=== PATIENT | male | born 1960 | race Caucasian/White ===

== ENCOUNTER 2020-10-12 07:12 | Outpatient (CLI) | payer MEDICARE, SELFPAY ==
[2020-10-12 07:33] LABS: Basophils Absolute Auto 0.03 K/mm3 (0.00-0.10); Basophils Percent Auto 0.7 % (0.0-1.0); Eosinophils Absolute Auto 0.11 K/mm3 (0.02-0.50); Eosinophils Percent Auto 2.6 % (1.0-6.0); Hematocrit 44.9 % (40.0-54.0); Hemoglobin 15.7 g/dL (14.0-18.0); Immature Granulocyte Absolute 0.01 K/mm3 (0.00-0.00); Immature Granulocyte Percent A 0.2 % (0.0-0.0); Lymphocytes Absolute Auto 1.37 K/mm3 (1.10-4.50); Lymphocytes Percent Auto 32.3 % (18.0-42.0); Mean Corpuscular Hemoglobin 30.8 pg (27.0-31.0); Mean Corpuscular Volume 88.2 fL (78.0-102.0); Mean Platelet Volume 12.2 fl (8.7-11.0); Monocytes Absolute Auto 0.41 K/mm3 (0.10-0.90); Monocytes Percent Auto 9.7 % (2.0-11.0); Neutrophils Absolute Auto 2.3 K/mm3 (1.7-7.2); Neutrophils Percent Auto 54.5 % (50.0-70.0); Platelet Count Result 125 K/mm3 (150-420); Red Blood Count 5.09 M/mm3 (4.70-6.10); White Blood Count 4.2 K/mm3 (4.8-10.8)
[2020-10-12 07:44] LABS: Hemoglobin A1C 5.1 % (<5.7)
[2020-10-12 09:00] LABS: Alanine Aminotransferase 33 U/L (16-63); Albumin Level 4.2 g/dL (3.4-5.0); Alkaline Phosphatase 88 U/L (46-116); Anion Gap 6 mmol/L (8-16); Aspartate Amino Transferase 19 U/L (15-37); Bilirubin,Total 0.6 mg/dL (0.00-1.00); Blood Urea Nitrogen 23 mg/dL (7-18); Calcium 8.8 mg/dL (8.5-10.1); Carbon Dioxide 31 mmol/L (21-32); Chloride 104 mmol/L (98-108); Cholesterol 166 mg/dL (0-200); Estimated Glomerular Filt Rate > 60; Free T4 Free Thyroxine 0.88 ng/dL (0.76-1.46); Glucose 95 mg/dL (70-99); HDL Direct 35 mg/dL (40-60); LDL Cholesterol Calculated 102 mg/dL (<130); Osmolality Calculated 295 mOsm/kg (285-295); Sodium 141 mmol/L (136-145); Thyroid Stimulating Hormone 1.81 uIU/mL (0.36-3.74); Total Protein 6.7 g/dL (6.4-8.2); Triglycerides 144 mg/dL (0-150); Vitamin B12 487 pg/mL (193-986)
== END 2020-10-12 07:13 | disposition home or self-care (01) ==
LOC: CHSLAB 07:22
PROVIDERS: PCP Internal Medicine; Visit Provider Internal Medicine
DX: R73.01 Impaired fasting glucose (principal); E78.2 Mixed hyperlipidemia; G62.9 Polyneuropathy, unspecified
CPT/HCPCS: 36415; 80053; 80061; 82607; 83036; 84439; 84443; 84481; 85025; 86038

== ENCOUNTER 2021-04-26 07:04 | Outpatient (CLI) | payer MEDICARE, SELFPAY ==
[2021-04-26 07:18] LABS: Hematocrit 44.3 % (40.0-54.0); Hemoglobin 15.7 g/dL (14.0-18.0); Immature Platelet Fraction Pct 10.3 % (1.0-7.0); Mean Corpuscular HGB Conc 35.4 g/dL (32.0-36.0); Mean Corpuscular Hemoglobin 31.2 pg (27.0-31.0); Mean Corpuscular Volume 87.9 fL (78.0-102.0); Mean Platelet Volume 12.2 fl (8.7-11.0); Platelet Count Result 127 K/mm3 (150-420); Red Blood Count 5.04 M/mm3 (4.70-6.10); Red Cell Distribution Width 12.4 % (11.6-14.4); White Blood Count 3.6 K/mm3 (4.8-10.8)
[2021-04-26 08:15] LABS: Anion Gap 7 mmol/L (8-16); Blood Urea Nitrogen 22 mg/dL (7-18); Calcium 9.1 mg/dL (8.5-10.1); Carbon Dioxide 30 mmol/L (21-32); Chloride 107 mmol/L (98-108); Estimated Glomerular Filt Rate > 60; Glucose 95 mg/dL (70-99); Osmolality Calculated 301 mOsm/kg (285-295); Potassium 4.2 mmol/L (3.5-5.1); Sodium 144 mmol/L (136-145)
[2021-04-26 08:58] LABS: Total Cells Counted 100
[2021-04-26 09:11] LABS: Band Neutrophils Percent 0 % (0-6); Eosinophils Absolute Manual 0.18 K/mm3 (0.02-0.5); Eosinophils Percent Manual 5 % (1-6); Lymphocytes Absolute Manual 1.36 K/mm3 (1.1-4.5); Lymphocytes Percent Manual 38 % (18-44); Monocytes Absolute Manual 0.28 K/mm3 (0.1-0.90); Monocytes Percent Manual 8 % (3-9); Neutrophils Absolute Manual 1.76 K/mm3 (1.3-6.7); Neutrophils Percent Manual 49 % (46-73)
== END 2021-04-26 07:05 | disposition home or self-care (01) ==
LOC: CHSLAB 07:06
PROVIDERS: PCP Internal Medicine; Visit Provider Internal Medicine
DX: D69.6 Thrombocytopenia, unspecified (principal); I10 Essential (primary) hypertension
CPT/HCPCS: 36415; 80048; 85025; 85055; 85060

== ENCOUNTER 2021-05-31 07:32 | Outpatient (CLI) | payer MEDICARE, SELFPAY ==
--- NOTE | ~2021-05-31 | XR_ITS ---
EXAMINATION: XR_ENEMABAC_CR EXAM DATE: 05/31/2021 09:41 INDICATION: Incomplete colonoscopy. TECHNIQUE: Double contrast Barium and air enema performed through rectal tube inserted by Dr. Whaley. Total fluoroscopic time of 0.8 minutes. The DAP for this procedure was 106 mGym2. A total of 62 edwina ges sent to PACS from the exam. There is no prior study for comparison. FINDINGS: Contrast reached the cecum. There is tortuosity to the splenic flexure of the colon. There are no strictures or fixed filling defects identified. Due to tortuosity at the splenic flexure, cornell yps in this location 1 cm or less in size are not excludable. No significant diverticulosis. IMPRESSION: Mild limitations at splenic flexure from tortuosity, but no suspicious findings. Reviewed, dictated and finalized at location B. IMPRESSION: Mild limitations at splenic flexure from tortuosity, but no suspic ious findings.
== END 2021-05-31 07:33 | disposition home or self-care (01) ==
PROVIDERS: PCP Internal Medicine
DX: R93.3 Abnormal findings on diagnostic imaging of other parts of digestive tract (principal)
CPT/HCPCS: 74280

== ENCOUNTER 2021-08-13 08:44 | Outpatient (CLI) | payer MEDICARE, SELFPAY ==
--- NOTE | ~2021-08-13 | MR_ITS ---
EXAMINATION: MR shoulder LT wo con DATE: 08/13/2021 09:50 INDICATION: Left shoulder injury post fall 6 weeks prior TECHNIQUE: Magnetic resonance imaging (MRI) of the left shoulder was performed without intravenous co ntrast. Sequences included axial PD-weighted FS FSE, coronal oblique PD-weighted FS FSE, coronal obli que T2-weighted FS FSE, sagittal PD-weighted FS FSE, and sagittal T1-weighted SE. COMPARISON: None. FINDINGS: Evaluation mild to moderately limited by some degree of motion artifact or blurring on multiple seque nces including a repeated axial sequence. Coracoacromial arch: The acromion undersurface is flat in morphology (type I). The coracoacromial ligament is normal. Mild acromioclavicular osteoarthritis. Rotator cuff: The supraspinatus and teres minor tendons are normal. Mild infraspinatus tendinopathy without discret e tear. Mild subscapularis tendinopathy without discrete tear. Normal rotator cuff muscle bulk and si gnal. Biceps tendon, glenoid labrum and glenohumeral cartilage: Long head of the biceps tendon is normal. There is a superior, anterior to posterior tear of the ines oid labrum (SLAP tear) extending from the 12:00 superiorly to the 9:00 position posteriorly. On the c oronal images least affected by motion there appears to be mild diffuse chondral thinning without joe reciable surface irregularity, discrete chondral defects or degenerative subchondral changes to sugge st high-grade chondromalacia. Fluid: Physiologic amount of fluid in the glenohumeral joint and biceps tendon sheath. No loose osteochondra l bodies. Small amount of fluid in the subacromial/subdeltoid bursa consistent with mild bursitis. Bones: Normal marrow signal with no edema, fracture or abnormal marrow replacing process. IMPRESSION: 1. Evaluation for subtle findings mild to moderately limited by motion. 2. SLAP tear of the 12:00-9:00 position of the superior to posterior glenoid labrum. 3. Mild infraspinatus and subscapularis tendinopathy without discrete tear. 3. Mild glenohumeral and acromioclavicular osteoarthritis. 4. Mild subacromial/subdeltoid bursitis. Reviewed, dictated and finalized at location A. TER'S HELPER IMPRESSION: 1. Evaluation for subtle findings mild to moderately limited by motion. 2. SLAP tear of the 12:00-9:00 position of the superior to posterior glenoid [place]. 3. Mild infraspinatus and subscapularis tendinopathy without discrete tear. 3. Mild glenohumeral and acromioclavicular osteoarthritis. 4. Mild subacromial/subdeltoid bursitis.
== END 2021-08-13 08:45 | disposition home or self-care (01) ==
LOC: CHSIMG 08:45
PROVIDERS: PCP Internal Medicine; Visit Provider Internal Medicine
DX: S49.92XA Unspecified injury of left shoulder and upper arm, initial encounter (principal)
CPT/HCPCS: 73221

== ENCOUNTER 2021-10-03 10:22 | Outpatient (CLI) | payer MEDICARE, SELFPAY ==
--- NOTE | ~2021-10-03 | XR_ITS ---
XR knee LT 3V DATE: 10/03/2021 10:41 INDICATION: Lateral and posterior knee pain after pop 3 weeks ago TECHNIQUE: Tarrants, AP and lateral views COMPARISON: None FINDINGS: No fracture or dislocation or joint effusion. No periosteal reaction or bone destruction. N o radiopaque intra-articular loose body or chondrocalcinosis. Joint spaces appear relatively well pre served. IMPRESSION: No significant radiographic abnormality. MR examination would be more sensitive for inter nal derangement. Reviewed, dictated and finalized at location B. OR ACTUARIAL ANALYST IMPRESSION: No significant radiographic abnormality. MR examination would be mo re sensitive for internal derangement.
== END 2021-10-03 10:23 | disposition home or self-care (01) ==
LOC: CHSIMG 10:24
PROVIDERS: PCP Internal Medicine; Visit Provider Nurse Practitioner Family
DX: M25.562 Pain in left knee (principal)
CPT/HCPCS: 73562

== ENCOUNTER 2021-10-04 16:52 | Outpatient (RCR) | payer MEDICARE, SELFPAY ==
--- NOTE | 2021-10-11 13:24 | PTOPEVAL ---
Thank you for referring Devan Lozoya to [facility].? The patient is scheduled to be seen for therapy? ____x/week for ___ weeks. Please review, sign, date and return this plan of care SOURAV. I agree with and certify that the following plan of care is medically necessary. Referring Physician Date Admitting Provider: Attending Provider: Kiley Rajan, LAVATORY ATTENDANT Referring Provider: *PT Outpatient Evaluation Start: 10/04/21 17:06 Freq: Status: Active Protocol: Document 10/04/21 17:05 [facility] (Rec: 10/04/21 17:38 [facility] [id number]) Therapy Assessment Status Assessment Status Assessment Status Evaluation Evaluation Information Problem Diagnosis L knee pain Onset 09/16/21 Additional Evaluation Detail LEFS = 61% functionally declined Subjective Information patient reports he is coming Query Text:As Reported By Patient/ to therapy for pain in the L Family knee. he reports he has been having more pain in the outside of the L knee today. he reports he has increased pain in the L knee with stairs . he reports today he has felt more popping in the L knee. he reports he has put on some weight in the last 3 months. he reports he initially began having increased pain in the L knee when getting out of his truck. Prior Level of Function Comments Additional Prior Level of Function prior to stepping out of truck Comments , no issues with the L knee. patient reports he is busy daily atching his granddaughter going up and down stairs and working on house work. Pain Assessment Timing of Pain Assessment Timing of Pain Assessment Assessment Pain Scale Pain Scale Used Numeric (1 - 10) Self Report Pain Assessment Left Knee(s) Reported Pain Level 7 Greatest Pain Intensity 9 Pain Score Pain Score 7: Self Report Interventions Used Interventions Used By Clinicians Activity or ADL's,Ice, Medication,Rest Lower Extremity Range of Motion General Lower Extremity Range of Motion Reason Not Measured WFL/Left,WFL/Right Lower Extremity Muscle Strength Testing General Lower Extremity Strength Gross Lower Extremity Strength 5/5 R knee strength 5/5 L knee ext
--- NOTE | 2021-11-08 16:52 | PTOPEVAL ---
Thank you for referring Devan Lozoya to [facility].? The patient is scheduled to be seen for therapy? ____x/week for ___ weeks. Please review, sign, date and return this plan of care SOURAV. I agree with and certify that the following plan of care is medically necessary. Referring Physician Date Admitting Provider: Attending Provider: Kiley Rajan, STENOTYPIST Referring Provider: *PT Outpatient Evaluation Start: 10/04/21 17:06 Freq: Status: Active Protocol: Document 11/08/21 15:50 [facility] (Rec: 11/08/21 16:51 [facility] [id number]) Therapy Assessment Status Assessment Status Assessment Status Re-evaluation Evaluation Information Problem Diagnosis L knee pain Onset 09/16/21 Subjective Information patient report she continues Query Text:As Reported By Patient/ to have pain in the L knee Family with increased activities. he reports most days it will feel worse in the knee but some days it will let up and he will feel pain only in the hamstrings on the outside of the knee close to the knee. he reports he is having an MRI tomorrow. Pain Assessment Timing of Pain Assessment Timing of Pain Assessment Assessment Pain Scale Pain Scale Used Numeric (1 - 10) Self Report Pain Assessment Left Knee(s) Reported Pain Level 5 Pain Score Pain Score 5: Self Report Interventions Used Interventions Used By Clinicians Activity or ADL's,Education, Exercise,Ice,Medication,Manual Therapy Techniques,Rest Lower Extremity Range of Motion General Lower Extremity Range of Motion Gross Lower Extremity Range of Motion 0-130 degrees L knee mobility, Comments but patient reports intense pain with initial phase of arom L knee flexion and requires assist to break 90 degrees but then is able to achieve 130 degrees on his own . Lower Extremity Muscle Strength Testing General Lower Extremity Strength Gross Lower Extremity Strength 4+/5 L knee ext 4-/5 L knee flexion with pain increased Palpation Assessment Palpation Palpation tenderness in the lateral distal end of the hamsrtings near the attachement of the L knee. he also presents with
== END 2021-11-08 15:34 | disposition home or self-care (01) ==
LOC: CHSPT 16:52
PROVIDERS: PCP Internal Medicine; Visit Provider Nurse Practitioner Family
DX: M25.562 Pain in left knee (principal)
CPT/HCPCS: 97014; 97035; 97110; 97140; 97161; G0283

== ENCOUNTER 2021-11-09 09:29 | Outpatient (CLI) | payer MEDICARE, SELFPAY ==
--- NOTE | ~2021-11-09 | MR_ITS ---
EXAMINATION: MR knee LT wo con DATE: 11/09/2021 10:13 INDICATION: Left knee pain. TECHNIQUE: Magnetic resonance imaging (MRI) of the left knee was performed without intravenous contra st. Sequences included axial PD-weighted FS FSE, coronal PD-weighted FSE and PD-weighted FS FSE, sagi ttal PD-weighted FSE, and sagittal T2-weighted FS FSE. COMPARISON: Left knee radiographs 10/03/2021 FINDINGS: Medial compartment: There is an undersurface horizontal tear of posterior horn of medial meniscus. There is shallow parti al-thickness cartilage loss of tibial condyle medially with mild subchondral edema-like marrow signal intensity. Femoral cartilage is normal. Lateral compartment: There is a complex tear involving body and posterior horn of lateral meniscus. Lateral compartment ca rtilage is normal. There is subchondral edema-like marrow signal intensity in lateral femoral condyle at the notch, consistent with contusion. Patellofemoral compartment: There is cartilage surface irregularity of patella with mild subchondral edema-like marrow signal int ensity of lateral facet. There is cartilage surface irregularity of trochlea. Ligaments and tendons: The anterior and posterior cruciate ligaments are normal. Medial collateral ligament is normal. There are changes of prior sprain of fibular collateral ligament characterized by thickening and increased signal intensity proximally. There is mild patellar tendinopathy. Fluid: There is a moderate-sized knee joint effusion. There is a moderate-sized Moraes's cyst. IMPRESSION: 1. Subchondral edema-like marrow signal intensity in lateral femoral condyle, consistent with contusi on. 2. 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 3. Tears of medial and lateral menisci. 4. Moderate-sized knee joint effusion. 5. Moderate-sized Moraes's cyst. Reviewed, dictated and finalized at location A. IMPRESSION: 1. Subchondral edema-like marrow signal intensity in lateral femoral condyle, c onsistent with contusion. 2. 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 3. Tears of medial and lateral menisci. 4. Moderate-sized knee joint effusion. 5. Moderate-sized Moraes's cyst.
== END 2021-11-09 09:30 | disposition home or self-care (01) ==
LOC: CHSIMG 09:31
PROVIDERS: PCP Internal Medicine; Visit Provider Internal Medicine
DX: M25.562 Pain in left knee (principal)
CPT/HCPCS: 73721

== ENCOUNTER 2021-12-31 07:35 | Outpatient (RCR) | payer MEDICARE, SELFPAY ==
--- NOTE | 2022-01-02 09:17 | PTOPEVAL ---
Thank you for referring Devan Lozoya to [facility].? The patient is scheduled to be seen for therapy? ____x/week for ___ weeks. Please review, sign, date and return this plan of care SOURAV. I agree with and certify that the following plan of care is medically necessary. Referring Physician Date Admitting Provider: Attending Provider: ASIA PEREIRA Referring Provider: *PT Outpatient Evaluation Start: 12/31/21 07:01 Freq: Status: Active Protocol: Document 12/31/21 07:02 [facility] (Rec: 12/31/21 08:43 [facility] [id number]) Therapy Assessment Status Assessment Status Assessment Status Evaluation Evaluation Information Problem Diagnosis L Knee Pain Onset 12/19/21 Additional Evaluation Detail LEFS = 74% Functionall Declined Subjective Information Pt reports that he hurt his Query Text:As Reported By Patient/ leg a few months ago when he Family stepped out of his truck. The pain started out low, but it gradually grew worse. Since then, he has visited therapy that helped to decrease his pain, but not as good as he hoped. He states his physician told him he has a meniscus tear. Some days are better than others. He states that the brace has been helping with his pain and he has been walking better. He used to rarely be able to sleep through the night but is now rarely woken up during the night due to pain. At home, he ambulates without crutches and a brace at times, but when going to town, he uses his brace and crutches. While he would like to have a meniscus repair surgically, he is hopeful therapy will help him do more activities with less pain. Prior Level of Function Comments Additional Prior Level of Function Pt used to ride his bike Comments several miles a week and negotiate stairs without any pain or assistive device. Pain Assessment Timing of Pain Assessment Timing of Pain Assessment Pre-Treatment Pain Scale Pain Scale Used Numeric (1 - 10) Se
--- NOTE | 2022-05-20 10:23 | PCPTNOTE ---
rosalba has not been back to therapy since December. as of this date, he will be dc'd from skilled PT services due to lack of return to finish POC. ARMOND
== END 2022-01-10 23:59 | disposition home or self-care (01) ==
LOC: CHSPT 07:35
DX: S83.282A Other tear of lateral meniscus, current injury, left knee, initial encounter (principal)
CPT/HCPCS: 97014; 97110; 97161; 97530; G0283